=== PATIENT | male | born 1955 | race Caucasian/White ===

== ENCOUNTER → 2019-06-26 | Outpatient (CLI) | payer MEDICARE, OTHER ==
[~2019-06-26] MED LIST: ALPR0.5T6 PO; ASPI-482 PO; CHOL500050 PO; DICL50TA2 PO; IBUP-1060 PO; LISI-334 PO; MULT-505 PO; PRAV40TA2 PO; TIZA4TAB2 PO; TRAM50TA PO
== END | disposition home or self-care (01) ==
LOC: LAB 14:00
PROVIDERS: ATTEND Surgery
DX: Z01.818 Encounter for other preprocedural examination (principal); Z11.59 Encounter for screening for other viral diseases; K40.90 Unilateral inguinal hernia, without obstruction or gangrene, not specified as recurrent
CPT/HCPCS: C9803; U0003; 36415

== ENCOUNTER 2019-06-29 09:34 | Day surgery (SDC) | payer MEDICARE, OTHER ==
[~2019-06-29] VITALS: Ht 172.7 cm; Wt 90.5 kg
[~2019-06-29 09:34] MED LIST changes: +BACITRACIN 50,000 UNIT in IV NORMAL SALINE 500ML BAG 500 ML IRR ONE; +HYDROmorphone 2 MG/ML VIAL IV PRN; +IV RINGERS,LACTATED 1000ML 1,000 ML IV SCH; +LIDOCAINE 1% PF 2 ML VIAL. ID PRN; +ONDANSETRON PF 4 MG/2 ML VIAL. IV PRN; +PROCHLORPERAZINE 10 MG/2 ML VIAL. IV PRN; +fentaNYL PF VIAL 100 MCG/2 ML VIAL IV PRN
[2019-06-29] MEDS ORDERED: ONDANSETRON PF 4 MG/2 ML VIAL. ONE (09:52)
[2019-06-29] MEDS ORDERED: DEXAMETHASONE SOD PHOS 4 MG/ML VIAL ONE (09:52)
[2019-06-29] MEDS ORDERED: MIDAZOLAM HCL/PF 2 MG/2 ML VIAL. ONE (09:52)
[2019-06-29] MEDS ORDERED: LIDOCAINE 2% PF 5 ML VIAL. ONE (09:52)
[2019-06-29] MEDS ORDERED: PROPOFOL 10 MG/ML (20ML) VIAL. IV ONE (09:52)
[2019-06-29] MEDS ORDERED: fentaNYL PF VIAL 100 MCG/2 ML VIAL ONE (09:52)
[2019-06-29] MEDS ORDERED: BUPIVACAINE-EPI 0.5%-1:200000 MPF 30 ML VIAL. ONE (10:27)
[2019-06-29] MEDS ORDERED: SEVOFLURANE 31 TO 60 MINUTES. IH ONE (11:22)
[2019-06-29] MEDS ORDERED: KETOROLAC 30 MG/ML VIAL. ONE (11:22)
--- NOTE | 2019-06-29 12:29 | DISCH ---
DISCHARGE INSTRUCTIONS Condition on Discharge Condition on Discharge: Stable Activity After Discharge Activity Instructions for Disc: Other, see below (no lifting over 20 lbs X 4 weeks) Driving Instructions after Dis: Other, see below (no driving while taking prescription pain meds) Diet after Discharge Diet Texture: Regular Wound Incision Care Wound/Incision Care: Other, see below (keep dressing clean and dry X 72 hours, may then remove and shower) Follow-Up Follow up with: Dr Collins in 2 weeks in office, call for appt [phone] PEYTON COLLINS MD June 29, 2019 12:28
--- NOTE | 2019-06-29 12:32 | PDOC4 ---
Operative Note Operative Note Operative Note: Preoperative Diagnosis: Right inguinal hernia Postoperative Diagnosis: Same Procedure: Right inguinal hernia repair with mesh Surgeon: Eliseo Net Wpf Developer: MISAEL Padgett Anesthesia: General EBL: 10 mL Specimen: None Drains: None Complications: None Indication: The patient is a 63-year-old male who was referred with a reducible right inguinal hernia. He is interested in operative repair. The risks of surgery were discussed which include bleeding, infection, recurrence, pain, scar tissue, anesthetic risk, potential need for additional surgery procedure. He understands and would like to proceed. Description: The patient was taken to the operating room and placed supine on the operating table. General anesthesia was performed. The right groin was shaved and prepped with ChloraPrep and draped in a standard surgical manner. An incision was made in the right groin with a scalpel. Cautery dissection was carried down to the external oblique aponeurosis. The aponeurosis was opened down to the external ring. The contents of the inguinal canal were digitally mobilized and encircled with a [place] drain. There was a small indirect hernia present. The sac was freed from the surrounding cord structures. The hernia sac was fully reduced and defect filled with a medium sized Phasix mesh plug. The plug was sutured in position with 2-0 Vicryl. The entire inguinal floor was then reinforced with a keyhole Prolene mesh patch. The patch was sutured into position with 2-0 Vicryl. The external oblique was closed over the mesh with 2- 0 Vicryl. The subcutaneous tissue was approximated with 3-0 Vicryl. The skin was closed with 4-0 Monocryl. The incision was infiltrated with half percent Marcaine with epinephrine. Steri-Strips and a sterile dressing were applied. The patient tolerated the procedure well and was sent to the recovery room in stable condition. At the end of the case all counts were correct. PEYTON COLLINS MD June 29, 2019 12:32
[2019-06-29] MEDS ORDERED: MORPHINE SULFATE 2 MG/ML VIAL. ONE (12:37)
[2019-06-29 12:40] VITALS: BP 140/79
[2019-06-29] MEDS: MORPHINE SULFATE 2 MG/ML VIAL. IV PRN ×2 (12:40→12:50)
[2019-06-29] MEDS ORDERED: oxyCODONE/APAP 5/325 1 TAB TABLET PO ONE ×2 (12:45)
== END 2019-06-29 13:31 | disposition home or self-care (01) ==
LOC: SURG 09:34
PROVIDERS: ATTEND Surgery
DX: K40.90 Unilateral inguinal hernia, without obstruction or gangrene, not specified as recurrent (principal); Z88.8 Allergy status to other drugs, medicaments and biological substances; Z79.82 Long term (current) use of aspirin; Z79.899 Other long term (current) drug therapy
CPT/HCPCS: 49505; A7015; C1781; J0696; J1100; J1885; J2250; J2270; J2405; J2704; J3010; J3490; J7040